=== PATIENT | male | born 1970 | race Caucasian/White ===

== ENCOUNTER 2017-03-01 18:35 | Inpatient (IN) | payer OTHER ==
[~2017-03-01] VITALS: Ht 180.3 cm; Wt 81.3 kg
[2017-03-01 20:16] LABS: BASOPHIL % 0.1 % (0-2); RED CELL DISTRIBUTION WIDTH 14.1 % (11.5-14.5)
[2017-03-01 20:20] LABS: CALCIUM 8.8 mg/dL (8.5-10.1); CARBON DIOXIDE 25.1 mmol/L (21-32); CREATININE SERUM 2.5 mg/dL (0.7-1.3); POTASSIUM SERUM 3.6 mmol/L (3.5-5.1)
[2017-03-01 20:21] LABS: PLATELET COUNT 121 x10^3mcL (130-400)
[2017-03-01 20:25] LABS: BILIRUBIN TOTAL 1.98 mg/dL (0.20-1.00); TOTAL PROTEIN, SERUM 7.5 g/dL (6.4-8.2)
[2017-03-01 20:26] LABS: ALBUMIN 2.9 g/dL (3.4-5.0)
[2017-03-01] MEDS ORDERED: MOT600 PO (22:32)
[2017-03-01] MEDS ORDERED: ZOFRAN8 MG PO (22:33)
[2017-03-01 23:15] VITALS: Ht 180.3 cm; Wt 81.3 kg
[2017-03-01 23:26] LABS: MAGNESIUM 2.4 mg/dL (1.8-2.4); T4(THYROXINE) 11.9 ug/dL (4.7-13.3)
[2017-03-01 23:32] LABS: CHOLESTEROL/HDL RATIO 13.7
[2017-03-01 23:38] LABS: AMPHETAMINE QUAL UR NONE DETECTED (NEG <=1000)
[2017-03-01 23:51] LABS: FREE T4 1.51 ng/dL (0.76-1.46)
[2017-03-02] VITALS (8 sets, daily range): BP systolic 95–142; BP diastolic 61–98
[2017-03-02 00:28] LABS: T3 TOTAL 0.9 ng/mL
[2017-03-02 08:37] LABS: BASOPHIL % 0.2 % (0-2); RED CELL DISTRIBUTION WIDTH 14.5 % (11.5-14.5)
[2017-03-02 08:46] LABS: PLATELET COUNT 89 x10^3mcL (130-400)
[2017-03-02 11:17] LABS: CALCIUM 8.1 mg/dL (8.5-10.1); CARBON DIOXIDE 21.3 mmol/L (21-32); CREATININE SERUM 2.1 mg/dL (0.7-1.3); MAGNESIUM 2.4 mg/dL (1.8-2.4); PHOSPHOROUS 3.4 mg/dL (2.5-4.9); POTASSIUM SERUM 3.4 mmol/L (3.5-5.1)
[2017-03-02 17:25] LABS: microscopic required? YES; urine erythrocyte 2+ (NEGATIVE)
[2017-03-03 05:56] VITALS: BP 133/83
[2017-03-03 06:01] VITALS: BP 112/55
[2017-03-03 06:48] LABS: RED CELL DISTRIBUTION WIDTH 14.3 % (11.5-14.5)
[2017-03-03 06:53] LABS: PLATELET COUNT 96 x10^3mcL (130-400)
[2017-03-03 07:04] LABS: CALCIUM 7.8 mg/dL (8.5-10.1); CARBON DIOXIDE 21.9 mmol/L (21-32); CHLORIDE SERUM 103 mmol/L (98-107); CREATININE SERUM 1.1 mg/dL (0.7-1.3); GFR1 > 60 mL/min; GLUCOSE SERUM 122 mg/dL (74-106); MAGNESIUM 2.4 mg/dL (1.8-2.4); PHOSPHOROUS 1.8 mg/dL (2.5-4.9); POTASSIUM SERUM 3.4 mmol/L (3.5-5.1); SODIUM SERUM 135 mmol/L (136-145)
[2017-03-03 08:18] LABS: BAND NEUTROPHIL 3 % (0-10); MONOCYTE 14 % (0-7); SEGMENTED NEUTROPHILS 75 % (37-75)
[2017-03-03 08:19] LABS: rbc morphology (normal/abnorm) NORMAL (NORMAL)
[2017-03-03 09:20] VITALS: BP 124/81
[2017-03-03 17:34] VITALS: BP 126/80
[2017-03-03 21:03] VITALS: BP 130/82
[2017-03-04 05:37] VITALS: BP 143/81
[2017-03-04 06:57] LABS: CALCIUM 7.9 mg/dL (8.5-10.1); CHLORIDE SERUM 103 mmol/L (98-107); CREATININE SERUM 1.1 mg/dL (0.7-1.3); GFR1 > 60 mL/min; GLUCOSE SERUM 125 mg/dL (74-106); POTASSIUM SERUM 3.5 mmol/L (3.5-5.1); SODIUM SERUM 135 mmol/L (136-145)
[2017-03-04 07:03] LABS: BASOPHIL % 0.1 % (0-2); RED CELL DISTRIBUTION WIDTH 14.3 % (11.5-14.5)
[2017-03-04 07:11] LABS: PLATELET COUNT 122 x10^3mcL (130-400)
[2017-03-04 10:22] VITALS: BP 124/81
[2017-03-04 17:27] VITALS: BP 158/89
[2017-03-04 21:50] VITALS: BP 132/85
[2017-03-05 05:51] VITALS: BP 149/87
[2017-03-05 06:55] LABS: BASOPHIL % 0 % (0-2); PLATELET COUNT 159 x10^3mcL (130-400)
[2017-03-05 06:59] LABS: ALKALINE PHOSPHATASE 141 U/L (46-116); ALT/SGPT 38 U/L (16-63); AST/SGOT 42 U/L (15-37); BILIRUBIN TOTAL 1.4 mg/dL (0.20-1.00); CALCIUM 7.8 mg/dL (8.5-10.1); CARBON DIOXIDE 24.8 mmol/L (21-32); CHLORIDE SERUM 102 mmol/L (98-107); CREATININE SERUM 0.9 mg/dL (0.7-1.3); GFR1 > 60 mL/min; GLUCOSE SERUM 109 mg/dL (74-106); PHOSPHOROUS 2.7 mg/dL (2.5-4.9); POTASSIUM SERUM 3.3 mmol/L (3.5-5.1); SODIUM SERUM 134 mmol/L (136-145)
[2017-03-05 07:00] LABS: ALBUMIN 1.9 g/dL (3.4-5.0); TOTAL PROTEIN, SERUM 5.7 g/dL (6.4-8.2)
[2017-03-05 14:15] VITALS: BP 141/70
[2017-03-05] MEDS ORDERED: LAC PO (16:15)
[2017-03-05] MEDS ORDERED: LEVAQUIN750 MG PO (16:16)
[2017-03-05] MEDS ORDERED: CLEOCIN HCL300 MG PO (16:17)
[2017-03-05 16:49] VITALS: BP 141/70
== END 2017-03-05 15:30 | disposition home or self-care (01) | DRG 720 ==
LOC: ED 18:35 → DU 22:14 → MU 03-02 16:49
PROVIDERS: Emergency Medicine; Family Medicine; ADMIT Family Medicine
DX: A41.9 Sepsis, unspecified organism (principal); N17.0 Acute kidney failure with tubular necrosis; J69.0 Pneumonitis due to inhalation of food and vomit; E44.0 Moderate protein-calorie malnutrition; E83.39 Other disorders of phosphorus metabolism; E87.1 Hypo-osmolality and hyponatremia; K86.89 Other specified diseases of pancreas; A08.4 Viral intestinal infection, unspecified; E87.6 Hypokalemia; R51 Headache; E86.0 Dehydration; E78.5 Hyperlipidemia, unspecified; R74.0 Nonspecific elevation of levels of transaminase and lactic acid dehydrogenase [LDH]; Z68.25 Body mass index [BMI] 25.0-25.9, adult; Z85.07 Personal history of malignant neoplasm of pancreas; Z80.9 Family history of malignant neoplasm, unspecified; Z79.1 Long term (current) use of non-steroidal anti-inflammatories (NSAID)
CPT/HCPCS: 83880; 84439; 94150; J0696; J1885; J1956; J2405; J2765; J3490; J7030; J7620; Q0092; Q9967